=== PATIENT | male | born 1960 | race Caucasian/White ===

== ENCOUNTER 2018-02-01 22:44 | Emergency (ER) | payer MEDICAID ==
[~2018-02-01] VITALS: Ht 170.2 cm; Wt 86.2 kg
[2018-02-01 22:58] VITALS: BP_SYST 122
--- NOTE | 2018-02-01 23:50 | NUR ---
Patient to ER bed 02 to gown for evaluation. Side rails up. Report given to HAFSA Nam
--- NOTE | 2018-02-01 23:53 | NUR ---
Pt came into the ER in stable condition. Pt c/o watery left eye, bloody nose and "feeling out of it" x3 days. Pt stated he might have a fever at home but has not checked his temp. Pt is more concerned about bloody nose because he has never experienced it before and he s/p cataract sx on left eye. -sob -chest pain. No acute distress noted at this time, will continue to monitor.
--- NOTE | 2018-02-01 23:54 | NUR ---
# 20 gauge angiocath placed to LAC. Use of asceptic technique. Opsite placed over site. Blood return noted. Blood for lab drawn from site. Flushed with 10 cc of normal saline. No evidence of infiltration noted. Patient tolerated well.
--- NOTE | 2018-02-01 23:57 | NUR ---
CARLOS Ruiz at bedside examining patient.
[2018-02-02 00:14] LABS: BASOPHILS # (AUTO) 0.1 K/uL (0.0-0.2); BASOPHILS % (AUTO) 1.1 % (0.0-2.0); EOSINOPHILS # (AUTO) 0.2 K/uL (0.0-0.4); EOSINOPHILS % (AUTO) 2.9 % (0.0-4.0); HEMATOCRIT 46.1 % (36-54); HEMOGLOBIN 16.1 g/dL (14.0-18.0); LYMPHOCYTES # (AUTO) 2.1 K/uL (1.0-5.5); LYMPHOCYTES % (AUTO) 26.3 % (20.5-51.5); MEAN CORPUSCULAR HEMOGLOBIN 33 pg (27-31); MEAN CORPUSCULAR HGB CONC 35 % (32-36); MEAN CORPUSCULAR VOLUME 94 fL (79.0-98.0); MONOCYTES # (AUTO) 0.6 K/uL (0.0-1.0); MONOCYTES % (AUTO) 7.2 % (1.7-9.3); NEUTROPHILS # (AUTO) 5.1 K/uL (1.8-7.7); NEUTROPHILS % (AUTO) 62.5 % (40.0-70.0); RED BLOOD CELL COUNT(AUTO) 4.93 MIL/uL (4.2-6.2); RED CELL DISTRIBUTION WIDTH 12.2 % (9.0-15.0); WHITE BLOOD COUNT (AUTO) 8.1 K/uL (4.8-10.8)
[2018-02-02 00:18] LABS: CALCIUM 8.2 mg/dL (8.4-11.0); CREATININE 0.94 mg/dL (0.55-1.30); POTASSIUM 3.7 mmol/L (3.5-5.1)
[2018-02-02 00:24] LABS: ALBUMIN 3.8 g/dL (3.4-4.8); TOTAL BILIRUBIN 0.2 mg/dL (0.0-1.0)
[2018-02-02 00:25] LABS: BILIRUBIN,URINE NEGATIVE (NEGATIVE); CLARITY/URINE CLEAR (CLEAR); COLOR,URINE YELLOW (YELLOW); GLUCOSE,URINE NEGATIVE (NEGATIVE); KETONES,URINE NEGATIVE (NEGATIVE); LEUKOCYTE ESTERASE ,URINE NEGATIVE (NEGATIVE); NITRITE, URINE NEGATIVE (NEGATIVE); PH,URINE 5.5 (5.0-8.0); PROTEIN URINE NEGATIVE (NEGATIVE); UROBILINOGEN,URINE 0.2 (0.2-1.0)
[2018-02-02 00:33] LABS: BLOOD, URINE TRACE (NEGATIVE)
[2018-02-02 00:34] LABS: PLATELET COUNT (AUTO) 202 K/uL (130-430)
[2018-02-02] MEDS ORDERED: AZITHROMYCIN 250 MG TABLET PO ONE (00:45)
[2018-02-02 00:55] VITALS: BP_SYST 122
--- NOTE | 2018-02-02 00:55 | NUR ---
Patient given written and verbal discharge instructions and verbalizes understanding. ER MD CORONEL discussed with patient the results and treatment provided. Patient in stable condition. ID arm band removed. IV catheter removed intact and dressing applied, no active bleeding. Rx of AZITHROMYCIN given. Patient educated on pain management and to follow up with PMD. Pain Scale 0/10. Opportunity for questions provided and answered. Medication side effect fact sheet provided.
[2018-02-02 00:59] LABS: BACTERIA,URINE FEW /HPF (None Seen); WBC,URINE 0-3 /HPF (0-3)
== END 2018-02-02 00:55 | disposition home or self-care (01) ==
LOC: SED 22:44
DX: J32.9 Chronic sinusitis, unspecified (principal); F17.210 Nicotine dependence, cigarettes, uncomplicated
CPT/HCPCS: 36415; 80053; 81000; 85025; 99284; Q0144

== ENCOUNTER 2018-02-27 11:31 | Emergency (ER) | payer MEDICAID ==
[~2018-02-27] VITALS: Ht 170.2 cm; Wt 83.9 kg
[2018-02-27 11:48] VITALS: BP_SYST 134
--- NOTE | 2018-02-27 11:51 | NUR ---
Pt to bed 7
--- NOTE | 2018-02-27 11:55 | NUR ---
CARLOS Das at bedside examining patient.
--- NOTE | 2018-02-27 11:56 | NUR ---
Pt has very small, tiny abrasion. Bleeding controlled. Cleansed with alcohol wipe, bandaid placed.
[2018-02-27 12:00] VITALS: BP_SYST 134
--- NOTE | 2018-02-27 12:00 | NUR ---
Patient given written and verbal discharge instructions and verbalizes understanding. ER MD discussed with patient the results and treatment provided. Patient in stable condition. ID arm band removed. No Rx given. Patient educated on pain management and to follow up with PMD. Pain Scale 0/10. Opportunity for questions provided and answered.
== END 2018-02-27 12:00 | disposition home or self-care (01) ==
LOC: SED 11:31
DX: S01.81XA Laceration without foreign body of other part of head, initial encounter (principal); W26.8XXA Contact with other sharp object(s), not elsewhere classified, initial encounter; Y93.89 Activity, other specified; Y92.89 Other specified places as the place of occurrence of the external cause; Y99.8 Other external cause status
CPT/HCPCS: 99283

== ENCOUNTER 2018-09-22 10:58 | Inpatient (IN) | payer MEDICAID ==
[~2018-09-22] VITALS: Ht 170.2 cm; Wt 77.6 kg
[2018-09-22 11:04] VITALS: BP_SYST 131
[2018-09-22 12:01] LABS: BILIRUBIN,URINE NEGATIVE (NEGATIVE); BLOOD, URINE NEGATIVE (NEGATIVE); CLARITY/URINE CLEAR (CLEAR); COLOR,URINE YELLOW (YELLOW); GLUCOSE,URINE NEGATIVE (NEGATIVE); KETONES,URINE NEGATIVE (NEGATIVE); LEUKOCYTE ESTERASE ,URINE NEGATIVE (NEGATIVE); NITRITE, URINE NEGATIVE (NEGATIVE); PH,URINE 6.5 (5.0-8.0); PROTEIN URINE NEGATIVE (NEGATIVE)
[2018-09-22 12:25] LABS: ALBUMIN 3.1 g/dL (3.4-4.8); TOTAL BILIRUBIN 1.4 mg/dL (0.0-1.0)
[2018-09-22 12:27] LABS: POTASSIUM 4.7 mmol/L (3.5-5.1)
[2018-09-22 12:28] LABS: HEMATOCRIT 51.9 % (36-54); HEMOGLOBIN 17.6 g/dL (14.0-18.0); RED BLOOD CELL COUNT(AUTO) 5.39 MIL/uL (4.2-6.2); WHITE BLOOD COUNT (AUTO) 12.4 K/uL (4.8-10.8)
[2018-09-22 12:29] LABS: BASOPHILS # (AUTO) 0.1 K/uL (0.0-0.2); BASOPHILS % (AUTO) 0.6 % (0.0-2.0); EOSINOPHILS # (AUTO) 0.1 K/uL (0.0-0.4); EOSINOPHILS % (AUTO) 0.8 % (0.0-4.0); LYMPHOCYTES # (AUTO) 1.5 K/uL (1.0-5.5); LYMPHOCYTES % (AUTO) 11.9 % (20.5-51.5); MEAN CORPUSCULAR HEMOGLOBIN 33 pg (27-31); MEAN CORPUSCULAR HGB CONC 34 % (32-36); MEAN CORPUSCULAR VOLUME 96 fL (79.0-98.0); MONOCYTES # (AUTO) 1.4 K/uL (0.0-1.0); MONOCYTES % (AUTO) 11.3 % (1.7-9.3); NEUTROPHILS # (AUTO) 9.3 K/uL (1.8-7.7); NEUTROPHILS % (AUTO) 75.4 % (40.0-70.0); PLATELET COUNT (AUTO) 261 K/uL (130-430)
[2018-09-22 12:32] LABS: CALCIUM 12.9 mg/dL (8.4-11.0); CREATININE 0.96 mg/dL (0.55-1.30)
[2018-09-22] MEDS ORDERED: NACL 0.9% 1,000 ML IV ONE ×2 (14:00→16:15)
[2018-09-22] MEDS ORDERED: IOHEXOL 100 ML IV ONE (15:45)
[2018-09-22 18:25] VITALS: BP_SYST 145
[2018-09-22] MEDS ORDERED: LORazepam 2 MG/ML VIAL IVP PRN (19:30)
[2018-09-22] MEDS ORDERED: POTASSIUM CHLORIDE 20 MEQ TAB.PRT.SR PO PRN (19:30)
[2018-09-22] MEDS ORDERED: MORPHINE 4 MG/ML INJ. SYRINGE IVP PRN ×2 (19:30)
[2018-09-22] MEDS ORDERED: MAGNESIUM SULFATE 50 ML IV PRN (19:30)
[2018-09-22] MEDS ORDERED: DOCUSATE SODIUM 100 MG CAPSULE PO PRN (19:30)
[2018-09-22] MEDS ORDERED: ONDANSETRON HCL 4 MG/2 ML VIAL IVP PRN (19:30)
[2018-09-22] MEDS ORDERED: ZOLPIDEM TARTRATE 5 MG TABLET PO PRN (19:30)
[2018-09-22] MEDS ORDERED: NACL 0.9% 1,000 ML IV SCH (19:30)
[2018-09-22] MEDS ORDERED: MUPIROCIN 2% TOPICAL OINTMENT 22 GM NS PRN (19:30)
[2018-09-22 20:00] VITALS: BP_SYST 136
[2018-09-22] MEDS: NACL 0.9% 1,000 ML IV SCH (20:04)
[2018-09-22] MEDS: ACETAMINOPHEN 325 MG TABLET PO PRN (20:30)
[2018-09-22] MEDS: HEPARIN SODIUM,PORCINE 5000 UNITS/ML VIAL SUBCUT SCH (20:32)
[2018-09-23 00:33] VITALS: BP_SYST 112
[2018-09-23] MEDS: NACL 0.9% 1,000 ML IV SCH ×2 (06:23→17:02)
[2018-09-23 07:04] LABS: CALCIUM 10.8 mg/dL (8.4-11.0); CREATININE 0.76 mg/dL (0.55-1.30); POTASSIUM 3.8 mmol/L (3.5-5.1)
[2018-09-23 08:30] VITALS: BP_SYST 132
[2018-09-23] MEDS: HEPARIN SODIUM,PORCINE 5000 UNITS/ML VIAL SUBCUT SCH ×2 (08:38→20:15)
[2018-09-23 09:07] LABS: BASOPHILS % (AUTO) 0.6 % (0.0-2.0); HEMATOCRIT 46.9 % (36-54); LYMPHOCYTES % (AUTO) 14.2 % (20.5-51.5); MEAN CORPUSCULAR HEMOGLOBIN 33 pg (27-31); MEAN CORPUSCULAR HGB CONC 34 % (32-36); MEAN CORPUSCULAR VOLUME 96 fL (79.0-98.0); MONOCYTES % (AUTO) 12.5 % (1.7-9.3); NEUTROPHILS % (AUTO) 71.7 % (40.0-70.0); PLATELET COUNT (AUTO) 224 K/uL (130-430); RED BLOOD CELL COUNT(AUTO) 4.88 MIL/uL (4.2-6.2); RED CELL DISTRIBUTION WIDTH 12.7 % (9.0-15.0); WHITE BLOOD COUNT (AUTO) 10.6 K/uL (4.8-10.8)
[2018-09-23 09:08] LABS: BASOPHILS # (AUTO) 0.1 K/uL (0.0-0.2); EOSINOPHILS # (AUTO) 0.1 K/uL (0.0-0.4); LYMPHOCYTES # (AUTO) 1.5 K/uL (1.0-5.5); MONOCYTES # (AUTO) 1.3 K/uL (0.0-1.0); NEUTROPHILS # (AUTO) 7.6 K/uL (1.8-7.7)
[2018-09-23] MEDS ORDERED: IOHEXOL 100 ML IV ONE (11:09)
[2018-09-23 13:09] VITALS: BP_SYST 147
[2018-09-23 16:50] VITALS: BP_SYST 124
[2018-09-23] MEDS: ACETAMINOPHEN 325 MG TABLET PO PRN (20:14)
[2018-09-23 20:55] VITALS: BP_SYST 121
[2018-09-24 01:35] VITALS: BP_SYST 110
[2018-09-24] MEDS: NACL 0.9% 1,000 ML IV SCH (03:10)
[2018-09-24 06:49] LABS: CALCIUM 10.1 mg/dL (8.4-11.0); CREATININE 0.71 mg/dL (0.55-1.30); POTASSIUM 3.6 mmol/L (3.5-5.1)
[2018-09-24 07:54] LABS: HEMATOCRIT 47.2 % (36-54); HEMOGLOBIN 16.1 g/dL (14.0-18.0); MEAN CORPUSCULAR HEMOGLOBIN 33 pg (27-31); MEAN CORPUSCULAR HGB CONC 34 % (32-36); MEAN CORPUSCULAR VOLUME 95 fL (79.0-98.0); PLATELET COUNT (AUTO) 221 K/uL (130-430); RED BLOOD CELL COUNT(AUTO) 4.95 MIL/uL (4.2-6.2); RED CELL DISTRIBUTION WIDTH 12.9 % (9.0-15.0); WHITE BLOOD COUNT (AUTO) 10.8 K/uL (4.8-10.8)
[2018-09-24 07:57] LABS: LYMPHOCYTES % (AUTO) 11.2 % (20.5-51.5); MONOCYTES % (AUTO) 11.1 % (1.7-9.3); NEUTROPHILS % (AUTO) 76.3 % (40.0-70.0)
[2018-09-24 07:59] LABS: BASOPHILS % (AUTO) 0.4 % (0.0-2.0); EOSINOPHILS # (AUTO) 0.1 K/uL (0.0-0.4); LYMPHOCYTES # (AUTO) 1.2 K/uL (1.0-5.5); MONOCYTES # (AUTO) 1.2 K/uL (0.0-1.0); NEUTROPHILS # (AUTO) 8.2 K/uL (1.8-7.7)
[2018-09-24 08:04] VITALS: BP_SYST 128
[2018-09-24] MEDS: HEPARIN SODIUM,PORCINE 5000 UNITS/ML VIAL SUBCUT SCH (08:59)
[2018-09-24 09:59] VITALS: BP_SYST 128
== END 2018-09-24 10:50 | disposition home or self-care (01) | DRG 281 ==
LOC: SED 10:58 → SMU 17:59
PROVIDERS: ADMIT General Practice; ATTEND General Practice
DX: C22.8 Malignant neoplasm of liver, primary, unspecified as to type (principal); E83.52 Hypercalcemia; R65.10 Systemic inflammatory response syndrome (SIRS) of non-infectious origin without acute organ dysfunction; B19.20 Unspecified viral hepatitis C without hepatic coma; R63.4 Abnormal weight loss; F17.210 Nicotine dependence, cigarettes, uncomplicated; Z80.8 Family history of malignant neoplasm of other organs or systems; Z68.26 Body mass index [BMI] 26.0-26.9, adult
CPT/HCPCS: 36415; 74170-TC; 76700-TC; 80048; 80053; 81003; 82105; 83036; 83690-TC; 83735-TC; 85025; 96360; 96361; 99285; J1644; J7030; Q9967

== ENCOUNTER 2018-10-24 08:00 | Inpatient (IN) | payer MEDICAID ==
[~2018-10-24] VITALS: Ht 170.2 cm; Wt 74.8 kg
[2018-10-24 08:14] VITALS: BP_SYST 109
[2018-10-24] MEDS ORDERED: NACL 0.9% 1,000 ML IV ONE ×3 (08:49→12:30)
[2018-10-24 09:03] LABS: BASOPHILS # (AUTO) 0.1 K/uL (0.0-0.2); BASOPHILS % (AUTO) 0.5 % (0.0-2.0); EOSINOPHILS % (AUTO) 0.3 % (0.0-4.0); HEMATOCRIT 49.8 % (36-54); HEMOGLOBIN 16.7 g/dL (14.0-18.0); LYMPHOCYTES % (AUTO) 7.6 % (20.5-51.5); MEAN CORPUSCULAR HEMOGLOBIN 32 pg (27-31); MEAN CORPUSCULAR HGB CONC 33 % (32-36); MEAN CORPUSCULAR VOLUME 95 fL (79.0-98.0); MONOCYTES # (AUTO) 1.3 K/uL (0.0-1.0); MONOCYTES % (AUTO) 9.9 % (1.7-9.3); NEUTROPHILS # (AUTO) 11.1 K/uL (1.8-7.7); NEUTROPHILS % (AUTO) 81.7 % (40.0-70.0); PLATELET COUNT (AUTO) 277 K/uL (130-430); RED BLOOD CELL COUNT(AUTO) 5.24 MIL/uL (4.2-6.2); RED CELL DISTRIBUTION WIDTH 13.9 % (9.0-15.0); WHITE BLOOD COUNT (AUTO) 13.5 K/uL (4.8-10.8)
[2018-10-24 09:21] LABS: CREATININE 1.34 mg/dL (0.55-1.30); POTASSIUM 5.4 mmol/L (3.5-5.1)
[2018-10-24 09:22] LABS: INR 1.4 (0.80-1.20); PROTHROMBIN TIME 14.3 SECS (9.5-12.5)
[2018-10-24 09:24] LABS: CALCIUM 16.3 mg/dL (8.4-11.0)
[2018-10-24 09:25] LABS: TOTAL BILIRUBIN 2.1 mg/dL (0.0-1.0)
[2018-10-24 09:52] LABS: BILIRUBIN,URINE 1+ (NEGATIVE); BLOOD, URINE NEGATIVE (NEGATIVE); CLARITY/URINE CLEAR (CLEAR); COLOR,URINE YELLOW (YELLOW); GLUCOSE,URINE NEGATIVE (NEGATIVE); KETONES,URINE TRACE (NEGATIVE); LEUKOCYTE ESTERASE ,URINE NEGATIVE (NEGATIVE); NITRITE, URINE NEGATIVE (NEGATIVE); PROTEIN URINE TRACE (NEGATIVE)
[2018-10-24] MEDS ORDERED: cefTRIAXone 1 GM IVPB PREMIX 50 ML IV ONE (10:30)
[2018-10-24] MEDS ORDERED: FUROSEMIDE 40 MG/4 ML VIAL IVP ONE (12:30)
[2018-10-24] MEDS ORDERED: CALCITONIN SALMON,SYNTHETIC 3.7 ML SPRAY.PUMP NS ONE (13:15)
[2018-10-24] MEDS ORDERED: PAMIDRONATE DISODIUM 30 MG in NS 500 ML IV ONE (13:15)
[2018-10-24 14:06] VITALS: BP_SYST 122
[2018-10-24] MEDS: NACL 0.9% 1,000 ML IV SCH ×2 (15:03→19:53)
[2018-10-24 16:49] VITALS: BP_SYST 111
[2018-10-24 20:02] VITALS: BP_SYST 124
[2018-10-24] MEDS: PANTOPRAZOLE SODIUM 40 MG/VIAL (PROTONIX) IVP SCH (22:18)
[2018-10-25] MEDS: NACL 0.9% 1,000 ML IV SCH ×3 (01:14→17:09)
[2018-10-25 01:57] VITALS: BP_SYST 125
[2018-10-25 06:21] LABS: BASOPHILS # (AUTO) 0.1 K/uL (0.0-0.2); BASOPHILS % (AUTO) 0.8 % (0.0-2.0); EOSINOPHILS # (AUTO) 0.1 K/uL (0.0-0.4); EOSINOPHILS % (AUTO) 0.6 % (0.0-4.0); HEMATOCRIT 45.7 % (36-54); HEMOGLOBIN 15.2 g/dL (14.0-18.0); LYMPHOCYTES # (AUTO) 1.1 K/uL (1.0-5.5); LYMPHOCYTES % (AUTO) 9.6 % (20.5-51.5); MEAN CORPUSCULAR HEMOGLOBIN 32 pg (27-31); MEAN CORPUSCULAR HGB CONC 33 % (32-36); MEAN CORPUSCULAR VOLUME 95 fL (79.0-98.0); MONOCYTES # (AUTO) 1.1 K/uL (0.0-1.0); MONOCYTES % (AUTO) 9.4 % (1.7-9.3); NEUTROPHILS % (AUTO) 79.6 % (40.0-70.0); PLATELET COUNT (AUTO) 257 K/uL (130-430); RED BLOOD CELL COUNT(AUTO) 4.82 MIL/uL (4.2-6.2); RED CELL DISTRIBUTION WIDTH 13.8 % (9.0-15.0); WHITE BLOOD COUNT (AUTO) 11.3 K/uL (4.8-10.8)
[2018-10-25 06:39] LABS: ALBUMIN 1.5 g/dL (3.4-4.8); CREATININE 0.98 mg/dL (0.55-1.30); POTASSIUM 4.3 mmol/L (3.5-5.1); TOTAL BILIRUBIN 1.8 mg/dL (0.0-1.0)
[2018-10-25 07:20] LABS: CALCIUM 13.5 mg/dL (8.4-11.0)
[2018-10-25 07:38] VITALS: BP_SYST 128
[2018-10-25] MEDS: PANTOPRAZOLE SODIUM 40 MG/VIAL (PROTONIX) IVP SCH ×2 (08:50→21:32)
[2018-10-25 12:36] VITALS: BP_SYST 127
[2018-10-25 17:12] VITALS: BP_SYST 127
[2018-10-25 19:42] VITALS: BP_SYST 117
[2018-10-26 00:35] VITALS: BP_SYST 123
[2018-10-26] MEDS: NACL 0.9% 1,000 ML IV SCH (04:01)
[2018-10-26 07:56] LABS: CALCIUM 12.4 mg/dL (8.4-11.0); CREATININE 1.08 mg/dL (0.55-1.30); POTASSIUM 4.1 mmol/L (3.5-5.1)
[2018-10-26 08:03] LABS: ALBUMIN 1.7 g/dL (3.4-4.8); PHOSPHORUS 1.8 mg/dL (2.7-4.5); TOTAL BILIRUBIN 1.7 mg/dL (0.0-1.0)
[2018-10-26 08:14] VITALS: BP_SYST 123
[2018-10-26 08:33] LABS: BASOPHILS % (AUTO) 0.9 % (0.0-2.0); EOSINOPHILS % (AUTO) 0.8 % (0.0-4.0); HEMATOCRIT 45.5 % (36-54); HEMOGLOBIN 15.1 g/dL (14.0-18.0); LYMPHOCYTES % (AUTO) 8.9 % (20.5-51.5); MEAN CORPUSCULAR HEMOGLOBIN 32 pg (27-31); MEAN CORPUSCULAR HGB CONC 33 % (32-36); MEAN CORPUSCULAR VOLUME 96 fL (79.0-98.0); MONOCYTES % (AUTO) 11.9 % (1.7-9.3); NEUTROPHILS % (AUTO) 77.5 % (40.0-70.0); PLATELET COUNT (AUTO) 256 K/uL (130-430); RED BLOOD CELL COUNT(AUTO) 4.75 MIL/uL (4.2-6.2); RED CELL DISTRIBUTION WIDTH 14.2 % (9.0-15.0); WHITE BLOOD COUNT (AUTO) 10.4 K/uL (4.8-10.8)
[2018-10-26 08:34] LABS: BASOPHILS # (AUTO) 0.1 K/uL (0.0-0.2); EOSINOPHILS # (AUTO) 0.1 K/uL (0.0-0.4); LYMPHOCYTES # (AUTO) 0.9 K/uL (1.0-5.5); MONOCYTES # (AUTO) 1.2 K/uL (0.0-1.0); NEUTROPHILS # (AUTO) 8.1 K/uL (1.8-7.7)
[2018-10-26] MEDS: PANTOPRAZOLE SODIUM 40 MG/VIAL (PROTONIX) IVP SCH (09:10)
[2018-10-26 09:52] VITALS: BP_SYST 124
== END 2018-10-26 10:30 | disposition home or self-care (01) | DRG 281 ==
LOC: SED 08:00 → STU 12:40
PROVIDERS: ADMIT Internal Medicine Hospice and Palliative Medicine; ATTEND Internal Medicine Hospice and Palliative Medicine
DX: C22.0 Liver cell carcinoma (principal); N17.0 Acute kidney failure with tubular necrosis; E43 Unspecified severe protein-calorie malnutrition; R65.10 Systemic inflammatory response syndrome (SIRS) of non-infectious origin without acute organ dysfunction; K74.60 Unspecified cirrhosis of liver; E83.52 Hypercalcemia; B19.20 Unspecified viral hepatitis C without hepatic coma; Z68.25 Body mass index [BMI] 25.0-25.9, adult; Z98.42 Cataract extraction status, left eye; Z98.41 Cataract extraction status, right eye; Z79.899 Other long term (current) drug therapy
CPT/HCPCS: 36415; 80053; 81003; 82150-TC; 83605; 83690-TC; 83735-TC; 84100-TC; 85025; 85610-TC; 87040-TC; 87081; 93005; 96361; 96365; 99285; C9113; G0378; J0696; J2430; J7030; J7040